=== PATIENT | male | born 2000 | race Caucasian/White ===

== ENCOUNTER 2020-07-26 11:42 | Day surgery (SDC) | payer BC ==
[2020-07-23 08:46] VITALS: BMI 16.7
[~2020-07-26 11:42] MED LIST: LACTATED RINGERS 1,000 ML IV SCH; LIDOCAINE 1% (10MG/ML) FOR IV START INTRADERMA PRN
[2020-07-26 12:36] VITALS: TEMP 97.9
[2020-07-26] MEDS ORDERED: LIDOCAINE 1% INJ 10MG/ML (20 ML MDV) ONE (13:08)
[2020-07-26] MEDS ORDERED: PROPOFOL 10 MG/ML 20 ML VIAL IV ONE (13:08)
--- NOTE | 2020-07-26 13:25 | P.GSHP ---
History of Present Illness H&P Date: 07/26/20 Chief Complaint: GERD, GI bleed 's is a 20-year-old male been sick EGD colonoscopy. Patient has had complaints of GERD and rectal bleeding. Past Medical History Additional Past Medical History / Comment(s): ABD. PAIN AND BLOOD IN STOOL. HX IBS History of Any Multi-Drug Resistant Organisms: None Reported Past Surgical History: Appendectomy Additional Past Surgical History / Comment(s): COLONOSCOPY/EGD Past Anesthesia/Blood Transfusion Reactions: No Reported Reaction Smoking Status: Never smoker - Past Family History Mother Family Medical History: No Reported History Medications and Allergies Home Medications Medication Instructions Recorded Confirmed Type Omeprazole 40 mg PO DAILY 07/23/20 07/23/20 History Sucralfate [Carafate] 1 gm PO ACHS 07/23/20 07/23/20 History Allergies Allergy/AdvReac Type Severity Reaction Status Date / Time No Known Allergies Allergy Verified 07/26/20 12:18 Surgical - Exam Vital Signs Temp Pulse Resp BP Pulse Ox 97.9 F 72 16 121/59 99 07/26/20 12:35 07/26/20 12:35 07/26/20 12:35 07/26/20 12:35 07/26/20 12:35 - General well developed, well nourished, no distress - Eyes PERRL - ENT normal pinna - Neck no masses - Respiratory normal expansion - Cardiovascular Rhythm: regular - Abdomen Abdomen: soft, non tender Assessment and Plan Assessment: GERD, GI bleed. We'll perform EGD and colonoscopy
--- NOTE | 2020-07-26 13:27 | P.OP ---
Date of Procedure: 07/26/20 Preoperative Diagnosis: GERD, GI bleed Postoperative Diagnosis: Mild antral gastritis, normal colon Procedure(s) Performed: EGD Colonoscopy Anesthesia: MAC Surgeon: Josh Rodriguez Pathology: other (Antrum) Condition: stable Disposition: PACU Description of Procedure: PROCEDURE: The patient was placed on the endoscopy table in the lateral position. Digital rectal examination was performed which revealed no abnormalities. The prostate was symmetrical without nodules. Flexible colonoscope was then placed in the patient's anus and passed throughout the entire colon. The ileocecal valve was visualized. The cecum, ascending, transverse, descending and sigmoid colon were normal. The rectum was normal as well. There were no masses, polyps or diverticula noted in the entire colon. Next, the gastro-/oropharynx passed in the esophagus and stomach. Scope was placed through the pylorus. The first and second portion of duodenum appeared normal. Scope summer back the antrum this. Mildly inflamed. A biopsies performed. The scope was unretroflexed and remainder of the stomach appeared no rmal. The GE junction was at 40 cm. The distal esophagus appeared normal. The proximal esophagus appeared normal with scope withdrawn for patient. There is no evidence of GI bleed. Physical the patient had some anal trauma which caused his rectal bleeding.
[2020-07-26 13:35] VITALS: BP 147/63; PULSE 61; RESP 18
== END 2020-07-26 14:48 | disposition home or self-care (01) ==
LOC: ORWHC2ENDO 11:42
PROVIDERS: ATTEND Surgery
DX: K29.50 Unspecified chronic gastritis without bleeding (principal); K92.2 Gastrointestinal hemorrhage, unspecified; K21.9 Gastro-esophageal reflux disease without esophagitis; K58.9 Irritable bowel syndrome, unspecified; Z90.89 Acquired absence of other organs; Z79.899 Other long term (current) drug therapy
CPT/HCPCS: 88305; 45378; 43239; J2001; J2704; 45380

== ENCOUNTER 2020-09-18 06:04 | Emergency (ER) | payer BC ==
[2020-09-18 06:15] VITALS: BP 114/73; PULSE 104; RESP 18; TEMP 98.5
[2020-09-18] MEDS ORDERED: DIPH,PERTUS(ACELL)TETVAC-LF 0.5 ML VIAL IM ONE (06:22)
--- NOTE | 2020-09-18 06:38 | ED ---
General Adult HPI - General Chief complaint: Wound/Laceration Stated complaint: Injury, Right knee Time Seen by Provider: 09/18/20 06:16 Source: patient, RN notes reviewed Mode of arrival: wheelchair Limitations: no limitations - History of Present Illness Initial comments: 20-year-old male presents with mother and friend for laceration of the right kne e. Patient states he is exploring in the [place] and fell and cut his right knee. Denies any other injuries. His tetanus is not up-to-date. Patient denies any difficulty bending his knee. He otherwise feels fine. He did not hit his head.Patient has no other complaints at this time including shortness of breath, chest pain, abdominal pain, nausea or vomiting, headache, or visual changes. - Related Data Home Medications Medication Instructions Recorded Confirmed Omeprazole 40 mg PO DAILY 07/23/20 07/23/20 Sucralfate [Carafate] 1 gm PO ACHS 07/23/20 07/23/20 Allergies Allergy/AdvReac Type Severity Reaction Status Date / Time No Known Allergies Allergy Verified 09/18/20 06:15 Review of Systems ROS Statement: Those systems with pertinent positive or pertinent negative responses have been documented in the HPI. ROS Other: All systems not noted in ROS Statement are negative. Past Medical History Additional Past Medical History / Comment(s): ABD. PAIN AND BLOOD IN STOOL. HX IBS History of Any Multi-Drug Resistant Organisms: None Reported Past Surgical History: Appendectomy Additional Past Surgical History / Comment(s): COLONOSCOPY/EGD Past Anesthesia/Blood Transfusion Reactions: No Reported Reaction Past Psychological History: Anxiety Smoking Status: Vaper Past Alcohol Use History: Occasional Past Drug Use History: Marijuana - Past Family History Mother Family Medical History: No Reported History General Exam Limitations: no limitations General appearance: alert, in no apparent distress Head exam: Present: atraumatic, normocephalic, normal inspection Eye exam: Present: normal appearance, PERRL, EOMI. Absent: scleral icterus, conjunctival injection, periorbital swelling ENT exam: Present: normal exam, mucous membranes moist Neck exam: Present: normal inspection, full ROM. Absent: tenderness, meningismus, lymphadenopathy Respiratory exam: Present: normal lung sounds bilaterally. Absent: respiratory distress, wheezes, rales, rhonchi, stridor Cardiovascular Exam: Present: regular rate, normal rhythm, normal heart sounds. Absent: systolic murmur, diastolic murmur, rubs, gallop, clicks Extremities exam: Present: full ROM (Full range of motion of the right knee.), normal capillary refill (Capillary refill less than 2 seconds right lower extremity.), other (Patient has a superficial 3 cm laceration on the anterior right knee. No foreign body.). Absent: joint swelling, calf tenderness Course Vital Signs 09/18/20 06:11 Temperature 98.5 F Pulse Rate 104 H Respiratory 18 Rate Blood Pressure 114/73 O2 Sat by Pulse 98 Oximetry Procedures - Laceration Laceration #1 Consent Obtained: verbal consent Indication: laceration Site: lower extremity Size (cm): 3 Description: linear Depth: simple, single layer Anesthetic Used: lidocaine 1% Anesthesia Technique: local infiltration Amount (mls): 3 Pre-repair: wound explored, irrigated extensively, deep structures intact Type of Sutures: nylon Size of Sutures: 5-0 Number of Sutures: 4 Technique: simple, interrupted Patient Tolerated Procedure: well, no complications Medical Decision Making - Medical Decision Making Patient presents for right knee laceration. No other injuries. No head trauma. Wound was irrigated thoroughly with saline pressure irrigation and is generally clean wound. Tetanus is updated. Laceration was repaired using 4 simple interrupted sutures. Mother is a nurse. Discussed care providers and return parameters. Disposition Clinical Impression: Laceration Disposition: HOME SELF-CARE Condition: Good Instructions (If sedation given, give patient instructions): Care For Your Stitches (ED), Laceration (ED) Additional Instructions: return in 7-10 days for suture removal. Monitor for signs of infection such as spreading or streaking redness and return if these occur. Follow-up with your doctor. Return for any other worsening symptoms. Is patient prescribed a controlled substance at d/c from ED?: No Referrals: Abby Abebe DO [Primary Care Provider] - 1-2 days Time of Disposition: 06:37
== END 2020-09-18 06:39 | disposition home or self-care (01) ==
LOC: EC 06:04
DX: S81.011A Laceration without foreign body, right knee, initial encounter (principal); F17.290 Nicotine dependence, other tobacco product, uncomplicated; Z23 Encounter for immunization; W17.81XA Fall down embankment (hill), initial encounter; Y93.89 Activity, other specified; Y92.828 Other wilderness area as the place of occurrence of the external cause
CPT/HCPCS: 12032; 90471; 90715; 99282

== ENCOUNTER → 2021-04-27 | Outpatient (CLI) | payer BC ==
--- NOTE | 2021-04-27 11:15 | P.STRESS ---
- Stress Test Note Stress Test Results/Findings: Exam Performed: NM stress cardiolite complete Exam Date: 04/27/21 Reason for Exam: ABN ECG Height: 6 ft 2 in Weight: 62.596 kg Protocol: CARDIOLITE STRESS TEST Stage: 4 Duration of Exercise: 12:00 Resting Heart Rate: 72 Resting Blood Pressure: 124/68 Maximum Achieved Heart Rate: 168 Maximum Achieved Blood Pressure: 183/81 85% PMHR: 168 100% PMHR: 198 METS: 12.1 Technologist Comment: Stress Test Results/Findings: Baseline 12 EKG shows sinus rhythm normal [place] narrow QRS early repolarization abnormality with prominent J point notching in the inferior leads and V4 V5 and V6 Patient exercised on a Mono protocol for 12 minutes achieving a peak heart rate of 116 beats a minute Normal blood pressure response No ECG evidence for ischemia no exercise induced arrhythmias
--- NOTE | 2021-04-27 12:52 | NM ---
EXAMINATION TYPE: NM stress cardiolite complete DATE OF EXAM: 04/27/2021 COMPARISON: NONE HISTORY: Abnormal EKG TECHNIQUE: After the intravenous administration of 9.8 mCi Tc 99m Sestamibi - Rest images obtained 4 5 minutes post injection. The patient exercised using a JAILYN protocol and 1 minute prior to peak e xercise was injected with 24.7 mCi Tc 99m Sestamibi - Stress images obtained 10 minutes post injectio n. FINDINGS: Targeted heart rate was achieved during performance of the study, patient achieved 85% of predicted m aximal heart rate. Review of stress and rest SPECT images demonstrates no distinct perfusion abnormality. Gated analysi s shows normal wall motion with an estimated left ventricular ejection fraction of 67 %. IMPRESSION: No scintigraphic evidence for reversible ischemia, consider echocardiographic correlation for elevate d ejection fraction
--- NOTE | 2021-04-28 09:08 | EST ---
Stress Test Results/Findings: Exam Performed: NM stress cardiolite complete Exam Date: 04/27/21 Reason for Exam: ABN ECG Height: 6 ft 2 in Weight: 62.596 kg Protocol: CARDIOLITE STRESS TEST Stage: 4 Duration of Exercise: 12:00 Resting Heart Rate: 72 Resting Blood Pressure: 124/68 Maximum Achieved Heart Rate: 168 Maximum Achieved Blood Pressure: 183/81 85% PMHR: 168 100% PMHR: 198 METS: 12.1 Technologist Comment: Stress Test Results/Findings: Baseline 12 EKG shows sinus rhythm normal [place] narrow QRS early repolarization abnormality with prominent J point notching in the inferior leads and V4 V5 and V6 Patient exercised on a Mono protocol for 12 minutes achieving a peak heart rate of 116 beats a minute Normal blood pressure response No ECG evidence for ischemia no exercise induced arrhythmias MTDD
== END | disposition home or self-care (01) ==
LOC: RADNMMAIN 08:11
PROVIDERS: ATTEND Family Medicine
DX: R94.31 Abnormal electrocardiogram [ECG] [EKG] (principal)
CPT/HCPCS: 93017; 78452; A9500

== ENCOUNTER 2021-05-24 09:00 | Day surgery (SDC) | payer BC ==
[2021-05-23 11:05] VITALS: BMI 17.7
[~2021-05-24 09:00] MED LIST changes: -LACTATED RINGERS 1,000 ML IV SCH; -LIDOCAINE 1% (10MG/ML) FOR IV START INTRADERMA PRN; +SODIUM CHLORIDE 0.9% 1,000 ML IV SCH
[2021-05-24 09:42] VITALS: BP 116/64; PULSE 59; RESP 18; TEMP 98
--- NOTE | 2021-05-24 19:29 | P.EPPROC ---
- EP Procedure Note Electrophysiology Procedure Note: Diagnosis Recurrence presyncope Twelve-lead EKG shows sinus rhythm normal [place] narrow QRS and early repolarization abnormality in the inferior leads and precordial leads V3 through V6 with initial notching ST elevation 1 mm Tilt table test protocol Baseline heart rate 112/61 mmHg pulse rate 58 beats a minute Patient was tilted upright and I'll of 70 per protocol He felt a little dizzy upon standing thereafter remained asymptomatic No changes blood pressure with upright position Increase in his heart rate to greater than 30 beats a minute that persisted to the test When he is laid supine his heart rate normalized back to the 50s Impression Early repolarization abnormality of 1 mm inferolaterally with initial notching Orthostatic intolerance
== END 2021-05-24 11:19 | disposition home or self-care (01) ==
LOC: CATHEP 09:00
PROVIDERS: ATTEND Internal Medicine Clinical Cardiac Electrophysiology
DX: R55 Syncope and collapse (principal); F33.9 Major depressive disorder, recurrent, unspecified; F41.9 Anxiety disorder, unspecified; R40.4 Transient alteration of awareness; Z90.49 Acquired absence of other specified parts of digestive tract; Z83.3 Family history of diabetes mellitus; Z84.89 Family history of other specified conditions; Z81.8 Family history of other mental and behavioral disorders; F17.290 Nicotine dependence, other tobacco product, uncomplicated; K58.9 Irritable bowel syndrome, unspecified; G43.909 Migraine, unspecified, not intractable, without status migrainosus
CPT/HCPCS: 93660